=== PATIENT | male | born 1985 | race Caucasian/White ===

== ENCOUNTER 2016-07-24 16:51 | Emergency (ER) | payer OTHER | END 2016-07-24 17:18 | disposition left against medical advice (07) | LOC: ER1 16:51 | DX: Z53.21 Procedure and treatment not carried out due to patient leaving prior to being seen by health care provider (principal) ==

== ENCOUNTER 2021-03-05 14:37 | Emergency (ER) | payer OTHER ==
[2021-03-05 15:45] LABS: HEMOGLOBIN 14.7 gm/dl (14.0-17.5); RED BLOOD COUNT 4.55 M/UL (4.20-5.50); WHITE BLOOD COUNT 9.8 K/UL (4.5-11.0)
[2021-03-05 16:24] LABS: BUN/CREATININE RATIO 17 (0-10)
[2021-03-05] MEDS ORDERED: BACLOFEN10 MG PO (18:09)
[2021-03-05] MEDS ORDERED: IBU600 MG PO (18:09)
== END 2021-03-05 18:20 | disposition home or self-care (01) ==
LOC: ER1 14:37
PROVIDERS: Nurse Practitioner
DX: M54.2 Cervicalgia (principal); R07.9 Chest pain, unspecified; R51.9 Headache, unspecified; M54.50 Low back pain, unspecified; R10.9 Unspecified abdominal pain; F17.200 Nicotine dependence, unspecified, uncomplicated; V43.52XA Car driver injured in collision with other type car in traffic accident, initial encounter; Y92.410 Unspecified street and highway as the place of occurrence of the external cause
CPT/HCPCS: 70450; 71260; 72125; 72128; 72131; 80053; 80307; 81001; 82550; 82553; 83874; 84484; 85025; 93005; 96374; 96375; 99284; Q9967